=== PATIENT | female | born 1965 | race Caucasian/White ===

== ENCOUNTER → 2020-09-01 | Outpatient (CLI) | payer BC ==
[~2020-09-01] MED LIST: AMIT75 PO; BACTRIM DS PO; CLON2 PO; HYDR1TAB94 PO
== END | disposition home or self-care (01) ==
LOC: LAB EV 10:00 → LAB SHORT 10:00
DX: R19.7 Diarrhea, unspecified (principal)
CPT/HCPCS: 87493

== ENCOUNTER 2021-10-01 12:28 | Emergency (ER) | payer BC ==
[~2021-10-01] VITALS: Ht 172.7 cm; Wt 81.7 kg
== END 2021-10-01 14:21 | disposition home or self-care (01) ==
LOC: ER 12:28
DX: M75.02 Adhesive capsulitis of left shoulder (principal); F17.200 Nicotine dependence, unspecified, uncomplicated
CPT/HCPCS: 73030; 99283-25

== ENCOUNTER → 2022-03-21 | Outpatient (CLI) | payer BC ==
[2022-03-21 14:26] LABS: BASOPHILS ABSOLUTE AUTO 0.06 K/mm3 (0.00-0.23); BASOPHILS PERCENT AUTO 1 % (0-2); EOSINOPHILS ABSOLUTE AUTO 0.18 K/mm3 (0.00-0.68); EOSINOPHILS PERCENT AUTO 3 % (0-6); Hemoglobin 14.5 g/dL (11.5-16.0); IMMATURE GRAN ABSOLUTE AUTO 0.02 K/mm3 (0.00-0.10); IMMATURE GRAN PERCENT AUTO 0 % (0-1); LYMPHOCYTES ABSOLUTE AUTO 2.59 K/mm3 (0.84-5.20); LYMPHOCYTES PERCENT AUTO 36 % (21-46); MONOCYTES ABSOLUTE AUTO 0.73 K/mm3 (0.16-1.47); MONOCYTES PERCENT AUTO 10 % (4-13); Mean Corpuscular HGB Conc 33.7 g/dL (31.5-36.5); Mean Corpuscular Volume 92 fL (80-100); NEUTROPHILS ABSOLUTE AUTO 3.57 K/mm3 (1.96-9.15); NEUTROPHILS PERCENT AUTO 50 % (41-73); Platelet Count 214 K/mm3 (150-400); RDW Coefficient Variation 12.6 % (11.7-14.2); RDW Standard Deviation 42.1 fL (35.1-46.3); Red Blood Cell Count 4.67 M/mm3 (3.80-5.20); White Blood Cell Count 7.15 K/mm3 (4.00-11.30)
[2022-03-21 14:34] LABS: Albumin, Blood 3.9 g/dL (3.4-5.0); Bilirubin, Total 0.3 mg/dL (0.1-1.0); Bun/Creatinine Ratio 10.4 (12.0-20.0); Calcium, Blood 8.8 mg/dL (8.5-10.1); Creatinine, Blood 0.67 mg/dL (0.40-1.00); Globulin, Blood 4.1 g/dL (2.2-4.0); Potassium, Blood 3.8 mmol/L (3.5-5.5)
== END | disposition home or self-care (01) ==
LOC: LAB 14:18 → LAB SHORT 14:18
PROVIDERS: Chiropractor
DX: R07.89 Other chest pain (principal)
CPT/HCPCS: 80053; 84484; 85025; 85379

== ENCOUNTER 2022-06-21 01:41 | Observation (INO) | payer BC ==
[~2022-06-21] VITALS: Ht 172.7 cm; Wt 81.7 kg
[2022-06-21 02:24] LABS: BASOPHILS ABSOLUTE AUTO 0.05 K/mm3 (0.00-0.23); BASOPHILS PERCENT AUTO 0 % (0-2); EOSINOPHILS ABSOLUTE AUTO 0.19 K/mm3 (0.00-0.68); EOSINOPHILS PERCENT AUTO 1 % (0-6); Hemoglobin 15.8 g/dL (11.5-16.0); IMMATURE GRAN ABSOLUTE AUTO 0.05 K/mm3 (0.00-0.10); IMMATURE GRAN PERCENT AUTO 0 % (0-1); LYMPHOCYTES ABSOLUTE AUTO 3.16 K/mm3 (0.84-5.20); LYMPHOCYTES PERCENT AUTO 19 % (21-46); MONOCYTES ABSOLUTE AUTO 1.36 K/mm3 (0.16-1.47); MONOCYTES PERCENT AUTO 8 % (4-13); Mean Corpuscular HGB 31.3 pg (26.0-34.0); Mean Corpuscular HGB Conc 34.3 g/dL (31.5-36.5); Mean Corpuscular Volume 91 fL (80-100); Mean Platelet Volume 10.3 fL (9.1-12.4); NEUTROPHILS ABSOLUTE AUTO 11.46 K/mm3 (1.96-9.15); NEUTROPHILS PERCENT AUTO 70 % (41-73); Platelet Count 217 K/mm3 (150-400); RDW Coefficient Variation 12.4 % (11.7-14.2); RDW Standard Deviation 41.5 fL (35.1-46.3); Red Blood Cell Count 5.04 M/mm3 (3.80-5.20); White Blood Cell Count 16.27 K/mm3 (4.00-11.30)
[2022-06-21 02:46] LABS: Bilirubin, Total 0.4 mg/dL (0.1-1.0); Bun/Creatinine Ratio 10.1 (12.0-20.0); Calcium, Blood 9.7 mg/dL (8.5-10.1); Creatinine, Blood 0.69 mg/dL (0.40-1.00); Globulin, Blood 4.1 g/dL (2.2-4.0); Potassium, Blood 3.4 mmol/L (3.5-5.5); Total Protein, Blood 8.1 g/dL (6.4-8.2)
[2022-06-21 04:15] LABS: Source, Urine Clean Catch
[2022-06-21 04:17] LABS: Bilirubin, Urine Neg (Neg); Blood, Urine 1+ (Neg); Glucose Qualitative, Urine Neg (Neg); Ketones, Urine 1+ (Neg); Leukocyte Esterase, Urine 1+ (Neg); Nitrite, Urine Neg (Neg); Protein, Urine 2+ (Neg); Urobilinogen, Urine NORM (Normal)
[2022-06-21 04:37] LABS: Appearance, Urine Clear (Clear); Color, Urine Yellow (P-Yellow)
[2022-06-21 04:38] LABS: Red Blood Cells, Urine 0-2 /hpf (0-2); Squamous Epithelial Cells Few /hpf (Few); White Blood Cells, Urine 0-2 /hpf (0-5)
[2022-06-21 04:39] LABS: Bacteria Rare /hpf
--- NOTE | 2022-06-21 09:52 | NUR ---
PT TAKEN TO THE OR.
[2022-06-21 10:34] LABS: Influenza A, PCR NEGATIVE (NEGATIVE); Influenza B, PCR NEGATIVE (NEGATIVE); Resp Syncytial Virus, PCR NEGATIVE (NEGATIVE); SARS-Cov-2 (COVID-19) PCR, MMC NEGATIVE (NEGATIVE)
--- NOTE | 2022-06-21 13:00 | NUR ---
POST OP ARRIVED FROM PACU VIA PEG, A&OX4, DROWSY, DENIES ANY PAIN OR NAUSEA, NGT NOTED DRAINING SCANT BROWN LIQUID IN TUBING, LUNGS CLEAR T/O, HYPOACTIVE BT'S X4, ABD SOFT, 4 LAP INCISIONS NOTED ON ABD W/ WOUND GLUE, C/D/I, BAY CATH IN PLACE, DRAINING CLEAR, YELLOW URINE, CONT. TO MONITOR FOR ANY CHANGES.
--- NOTE | 2022-06-21 17:31 | NUR ---
SUMMARY S/P LAP SANDRA, VSS, DENIED ANY NEED FOR PAIN MEDS, DENIES ANY NAUSEA, PT C/O DISCOMFORT WITH BAY CATH AND NGT, DR. KHAN NOTIFIED AND NGT AND BAY CATH DC'D, TOLERATED WELL, PT AMBULATING INDEPENDENTLY, LAP INCISIONS C/D/I, NO ACUTE CHANGES THIS SHIFT.
--- NOTE | 2022-06-22 05:54 | NUR ---
SHIFT SUMMARY A/O X4- IND IN THE ROOM. VITAL SIGNS STABLE THROUGHOUT SHIFT. TOLERATING SIPS AND CHIPS. PASSING LIQUID STOOLS AND GAS. VOIDING WELL. POD1 LAP LYSIS OF ADHESIONS, LAP SITES C/D/I AND MARJORIE. NO PAIN REPORTED THROUGHOUT SHIFT. WILL CONTINUE TO MONITOR AND REPORT TO ONCOMING RN.
--- NOTE | 2022-06-22 12:31 | NUR ---
PT WANTS TO GO HOME, DIET ADVANCED TO FULL LIQUID FOR LUNCH, DR. KHAN NOTIFIED STATES IF PT TOLERATES [place] OK TO DC THIS AFTERNOON IF OK W/ [facility], PT VERBALIZED UNDERSTANDING.
--- NOTE | 2022-06-22 15:01 | NUR ---
PT TOLERATED FULL LIQUIDS, OK TO DC HOME PER DR. KHAN AND DR. CHACON, JORDAN INSTRUCTIONS GIVEN, VERBALIZED UNDERSTANDING.
--- NOTE | 2022-06-23 15:03 | NUR ---
06/23/22 1503 Galina Mtz VERIFICATIONS: EDIT CHART.
== END 2022-06-22 15:04 | disposition home or self-care (01) ==
LOC: ER 01:41 → SURS 01:42
PROVIDERS: Emergency Medicine; Surgery; ADMIT Internal Medicine
PROC: 0DN84ZZ Release Small Intestine, Percutaneous Endoscopic Approach (ICD-10-PCS; principal; 2022-06-21 10:00)
DX: K56.50 Intestinal adhesions [bands], unspecified as to partial versus complete obstruction (principal); F17.210 Nicotine dependence, cigarettes, uncomplicated; E87.6 Hypokalemia; F41.1 Generalized anxiety disorder; D72.829 Elevated white blood cell count, unspecified; K52.9 Noninfective gastroenteritis and colitis, unspecified; Z20.822 Contact with and (suspected) exposure to COVID-19
CPT/HCPCS: 0241U; 36415; 74177; 80053; 81001; 83690; 85025; 96361; 96374-59; 96375; 99285-25; J0690; J1100; J1170; J1885; J2250; J2270; J2370; J2405; J2704; J2795; J3010; J3480; J7030; J7120; Q9967

== ENCOUNTER → 2022-09-16 | Outpatient (CLI) | payer BC ==
[2022-09-16 17:53] LABS: Adenovirus F 40/41 Not Detected (NOT DETECT); Astrovirus Not Detected (NOT DETECT); Campylobacter Sp Not Detected (NOT DETECT); Cryptosporidium Not Detected (NOT DETECT); Cyclospora Cayetanensis Not Detected (NOT DETECT); E. Coli O157 Not Detected (NOT DETECT); Entamoeba Histolytica Not Detected (NOT DETECT); Enteroaggregative E. coli-EAEC Not Detected (NOT DETECT); Enteropathogenic E. coli-EPEC Not Detected (NOT DETECT); Enterotoxigenic E. coli-ETEC Not Detected (NOT DETECT); Giardia Lamblia Not Detected (NOT DETECT); Norovirus GI/GII Not Detected (NOT DETECT); Plesiomonas Shigelloides Not Detected (NOT DETECT); Rotavirus A Not Detected (NOT DETECT); Salmonella Sp Not Detected (NOT DETECT); Sapovirus Not Detected (NOT DETECT); Shiga Toxin-prod E. coli-STEC Not Detected (NOT DETECT); Shigella/Enteroin E. coli-EIEC Not Detected (NOT DETECT); Vibrio Cholerae Not Detected (NOT DETECT); Vibrio Sp Not Detected (NOT DETECT); Yersinia Enterocolitica Not Detected (NOT DETECT)
== END | disposition home or self-care (01) ==
LOC: LAB SHORT 09:53 → LAB 09:53
PROVIDERS: Physician Assistant Medical
DX: R19.7 Diarrhea, unspecified (principal)
CPT/HCPCS: 87507

== ENCOUNTER 2023-02-19 06:42 | Day surgery (SDC) | payer BC ==
[~2023-02-19] VITALS: Ht 172.7 cm; Wt 79.6 kg
[2023-02-19 09:18] VITALS: BP 106/73
== END 2023-02-19 09:26 | disposition home or self-care (01) ==
LOC: ORSCSDS 06:42
PROVIDERS: Student in an Organized Health Care Education/Training Program
PROC: 0DBG8ZX Excision of Left Large Intestine, Via Natural or Artificial Opening Endoscopic, Diagnostic (ICD-10-PCS; principal; 2023-02-19 08:00)
PROC: 0DBK8ZX Excision of Ascending Colon, Via Natural or Artificial Opening Endoscopic, Diagnostic (ICD-10-PCS; principal; 2023-02-19 08:00)
PROC: 0DBF8ZX Excision of Right Large Intestine, Via Natural or Artificial Opening Endoscopic, Diagnostic (ICD-10-PCS; principal; 2023-02-19 08:00)
PROC: 0DBP8ZX Excision of Rectum, Via Natural or Artificial Opening Endoscopic, Diagnostic (ICD-10-PCS; principal; 2023-02-19 08:00)
PROC: 0DBN8ZX Excision of Sigmoid Colon, Via Natural or Artificial Opening Endoscopic, Diagnostic (ICD-10-PCS; principal; 2023-02-19 08:00)
DX: K52.831 Collagenous colitis (principal); D12.2 Benign neoplasm of ascending colon; D12.5 Benign neoplasm of sigmoid colon; K62.1 Rectal polyp; G47.33 Obstructive sleep apnea (adult) (pediatric); F17.210 Nicotine dependence, cigarettes, uncomplicated; K21.9 Gastro-esophageal reflux disease without esophagitis; Z79.899 Other long term (current) drug therapy
CPT/HCPCS: 88305; 88313; J2704; J7120

== ENCOUNTER → 2023-06-29 | Outpatient (CLI) | payer BC ==
[2023-06-29 18:06] LABS: Protein, Urine Quantitative 5.7 mg/dL (0.0-11.9)
== END | disposition home or self-care (01) ==
LOC: LAB 07:06 → LAB SHORT 07:06
PROVIDERS: Internal Medicine
DX: K52.831 Collagenous colitis (principal)
CPT/HCPCS: 81050; 84156

== ENCOUNTER 2023-10-03 01:51 | Emergency (ER) | payer BC ==
[~2023-10-03] VITALS: Ht 172.7 cm; Wt 83.9 kg
[2023-10-03 02:54] LABS: BASOPHILS ABSOLUTE AUTO 0.06 K/mm3 (0.00-0.23); BASOPHILS PERCENT AUTO 1 % (0-2); EOSINOPHILS PERCENT AUTO 2 % (0-6); Hematocrit 43.8 % (33.0-51.0); Hemoglobin 14.6 g/dL (11.5-16.0); IMMATURE GRAN ABSOLUTE AUTO 0.02 K/mm3 (0.00-0.10); IMMATURE GRAN PERCENT AUTO 0 % (0-1); LYMPHOCYTES ABSOLUTE AUTO 2.92 K/mm3 (0.84-5.20); LYMPHOCYTES PERCENT AUTO 33 % (21-46); MONOCYTES ABSOLUTE AUTO 0.91 K/mm3 (0.16-1.47); MONOCYTES PERCENT AUTO 10 % (4-13); Mean Corpuscular HGB 31.1 pg (26.0-34.0); Mean Corpuscular HGB Conc 33.3 g/dL (31.5-36.5); Mean Corpuscular Volume 93 fL (80-100); Mean Platelet Volume 9.7 fL (9.1-12.4); NEUTROPHILS ABSOLUTE AUTO 4.76 K/mm3 (1.96-9.15); NEUTROPHILS PERCENT AUTO 54 % (41-73); Platelet Count 208 K/mm3 (150-400); RDW Coefficient Variation 12.3 % (11.7-14.2); RDW Standard Deviation 42.6 fL (35.1-46.3); Red Blood Cell Count 4.69 M/mm3 (3.80-5.20); White Blood Cell Count 8.87 K/mm3 (4.00-11.30)
[2023-10-03 03:14] LABS: Albumin, Blood 3.4 g/dL (3.4-5.0); Albumin/Globulin Ratio 0.8 (0.8-1.8); Bilirubin, Total 0.1 mg/dL (0.1-1.0); Bun/Creatinine Ratio 12.9 (12.0-20.0); Calcium, Blood 8.7 mg/dL (8.5-10.1); Creatinine, Blood 0.62 mg/dL (0.40-1.00); Globulin, Blood 4.1 g/dL (2.2-4.0); Potassium, Blood 3.9 mmol/L (3.5-5.5); Total Protein, Blood 7.5 g/dL (6.4-8.2)
[2023-10-03 05:00] VITALS: BP 92/53
== END 2023-10-03 05:17 | disposition home or self-care (01) ==
LOC: ER 01:51
PROVIDERS: Emergency Medicine
DX: R10.10 Upper abdominal pain, unspecified (principal); F17.210 Nicotine dependence, cigarettes, uncomplicated; Z88.8 Allergy status to other drugs, medicaments and biological substances; Z79.899 Other long term (current) drug therapy; Z90.49 Acquired absence of other specified parts of digestive tract
CPT/HCPCS: 74177; 80053; 83605; 83690; 85025; 99284-25; Q9967

== ENCOUNTER 2024-01-13 12:09 | Day surgery (SDC) | payer BC ==
[~2024-01-13] VITALS: Ht 172.7 cm; Wt 81.6 kg
[~2024-01-13 12:09] MED LIST changes: +Lactated Ringer's 1,000 ML IV ONE; +propofoL 50 ML IV ONE
[2024-01-13] MEDS ORDERED: LACT (12:54)
[2024-01-13] MEDS ORDERED: OMEP20ER (12:59)
[2024-01-13] MEDS ORDERED: SIME80CH (13:01)
[2024-01-13] MEDS ORDERED: Lactated Ringer's 1,000 ML IV ONE (13:42)
[2024-01-13 15:31] VITALS: BP 107/65
== END 2024-01-13 15:35 | disposition home or self-care (01) ==
LOC: ORSCSDS 12:09
PROVIDERS: Internal Medicine Gastroenterology
PROC: 0DBP8ZX Excision of Rectum, Via Natural or Artificial Opening Endoscopic, Diagnostic (ICD-10-PCS; principal; 2024-01-13 13:15)
PROC: 0DB78ZX Excision of Stomach, Pylorus, Via Natural or Artificial Opening Endoscopic, Diagnostic (ICD-10-PCS; principal; 2024-01-13 13:15)
DX: R10.13 Epigastric pain (principal); K21.9 Gastro-esophageal reflux disease without esophagitis; R93.3 Abnormal findings on diagnostic imaging of other parts of digestive tract; Z86.010 Personal history of colon polyps; K62.1 Rectal polyp; K29.70 Gastritis, unspecified, without bleeding; K44.9 Diaphragmatic hernia without obstruction or gangrene; K52.832 Lymphocytic colitis; F41.9 Anxiety disorder, unspecified; F17.210 Nicotine dependence, cigarettes, uncomplicated; G47.33 Obstructive sleep apnea (adult) (pediatric); E78.00 Pure hypercholesterolemia, unspecified; Z79.899 Other long term (current) drug therapy
CPT/HCPCS: 88305; 88342; J2704; J7120